=== PATIENT | female | born 1980 | race Hispanic/Latino ===

== ENCOUNTER 2023-11-02 02:25 | Observation (INO) | payer MEDICAID ==
[~2023-11-02] VITALS: Ht 157.5 cm; Wt 76.7 kg
[2023-11-02 02:27] VITALS: BP 113/77; PULSE 93; RESP 18
[2023-11-02 03:00] LABS: APPEARANCE,URINE CLEAR (CLEAR); BILIRUBIN,URINE NEGATIVE (NEGATIVE); COLOR,URINE COLORLESS (YELLOW); GLUCOSE, URINE (UA) NEGATIVE (NEGATIVE); KETONES,URINE NEGATIVE (NEGATIVE); LEUKOCYTE ESTERASE ,URINE NEGATIVE Leu/uL (NEGATIVE); NITRATE,URINE NEGATIVE (NEGATIVE); OCCULT BLOOD,URINE NEGATIVE (NEGATIVE); PROTEIN,URINE NEGATIVE (NEGATIVE); UROBILINOGEN,URINE 0.2 mg/dL (0.2-1.0)
[2023-11-02 03:01] LABS: ADD UA MICROSCOPIC NO
[2023-11-02] MEDS: TERBUTALINE SULFATE VIAL 1MG/ML SQ SCH (04:27)
[2023-11-02] MEDS: LACTATED RINGERS 1000ML 1,000 ML IV SCH (04:29)
== END 2023-11-02 06:14 | disposition home or self-care (01) ==
LOC: EDH 02:25 → LDH 02:43
PROVIDERS: ADMIT Obstetrics & Gynecology; ATTEND Obstetrics & Gynecology
DX: O36.8120 Decreased fetal movements, second trimester, not applicable or unspecified (principal); O62.9 Abnormality of forces of labor, unspecified; O26.892 Other specified pregnancy related conditions, second trimester; R10.9 Unspecified abdominal pain; Z3A.25 25 weeks gestation of pregnancy
CPT/HCPCS: 96372 ×2; 96360; 96361; 81003; 76819; G0378 ×3; G0379; J7120 ×3; J3105